=== PATIENT | female | born 1955 | race Caucasian/White ===

== ENCOUNTER 2016-07-17 21:58 | Emergency (ER) | payer OTHER ==
--- NOTE | 2016-07-17 23:06 | DIAGNOSTIC IMAGING REPORT ---
PROCEDURE: XR WRIST MIN 3 VIEWS - LEFT INDICATION: TRAUMA/INJURY TECHNIQUE: Four views. COMPARISON: None. FINDINGS: Osseous structures and joint spaces are normal. If an occult scaphoid fracture is suspected clinically, follow-up examination in 10-14 days may be of assistance. IMPRESSION: 1. Normal left wrist.
--- NOTE | 2016-07-17 23:40 | ED NURSING NOTES ---
Clinical Report - Nurses [facility] [address] [place] [address] 07/17/2016 22:00 Patient: LAINA LOPEZ TRIAGE Triage time 22:Jul 17 2016. Acuity: LEVEL 3. Chief Complaint: INJURY TO LEFT HAND and INJURY TO LEFT WRIST. SEPSIS SCREEN: Sepsis Screen: negative. Negative (no infection suspected/documented). MARZENA COMA SCORE: [place] Coma Scale: 15- eyes open spontaneously (4); best verbal response- oriented x 4 (5); best motor response- obeys commands (6). --22:10 Amparo Rodriguez 22:04 07/17/16. BP: 139/64. HR: 84. RR: 18. O2 saturation: 98% on room air. Temp: 97.8 F (oral). Pain level now: 12/26. --22:10 Amparo Rodriguez. Weight: 124.7 kg stated. Height/Length: 68 inches Per Patient. BMI: 41.8. --22:05 Amparo Rodriguez. Medications Atenolol Oral. --22:05 Amparo Rodriguez Synthroid Oral. --22:05 Amparo Rodriguez Requip XL Oral. --22:05 Amparo Rodriguez Flonase Nasal. --22:05 Amparo Rodriguez Lisinopril Oral. --22:05 Amparo Rodriguez. Medication/allergy information source: the patient. --22:10 Amparo Rodriguez. Allergies No Known Drug Allergy. --22:06 Amparo Rodriguez. History Arrived by private vehicle. Historian: patient. Accompanied by family. Primary physician (jennifer quevedo). This occurred just prior to arrival. Occurred at home. Mechanism of injury: fell while walking; tripped. ( Patient reports she was going down her steps when she tripped and fell. She caught herself with her left hand. She reports wrist and hand pain. She reports that she hit her left thigh as well.). 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 PAST MEDICAL HX: Tetanus status: up-to-date. Immunizations: up-to-date. The patient has had a hysterectomy. SOCIAL HX: Former smoker, end date 1996. No alcohol use or drug use. No infectious disease exposure. ABUSE ASSESSMENT: No report of abuse. FALL RISK ASSESSMENT: Fall risk assessment completed. No fall risk identified. NUTRITIONAL RISK ASSESSMENT: The nutritional risk assessment revealed no deficiencies. FUNCTIONAL ASSESSMENT: Functional assessment: no impairments noted. LEARNING NEEDS ASSESSMENT: The learning needs assessment revealed no barriers. SKIN INTEGRITY ASSESSMENT: Skin integrity risk assessment completed. No skin integrity risk identified. --22:10 Amparo Rodriguez. PROBLEMS: Thyroid Disease. Hypertension. --22:06 Amparo Rodriguez. ADDITIONAL SURGERIES: Hysterectomy. Thyroid Surgery. Tonsillectomy. --22:06 Amparo Rodriguez. Interventions ID band on patient. To treatment room. --22:10 Amparo Rodriguez. PHYSICAL ASSESSMENT 22:10 07/17/16. Ambulatory to room. GENERAL / NEURO / PSYCH: Oriented X 4. Alert. Appears in no acute distress. EXTREMITIES: Capillary refill is less than 2 seconds in the extremities. Extremity pulses are within normal limits. Neuro-vascular status intact to the extremity. Left wrist: tenderness. Left hand: tenderness. SKIN: Skin is warm and dry. --22:10 Amparo Rodriguez. NURSING PROGRESS NOTES Cold pack applied. Extremity elevated. Reassurance given to the patient. Two patient identifiers checked. Call light placed in reach. Side rails up x 1. Bed placed in lowest position. Brakes of bed on. Patient ready for evaluation- chart flagged and ED physician notified. --22:11 Amparo Rodriguez The patient reports no complaints and she is calm and resting quietly. --23:14 Amparo Rodriguez 3 inch saumya bandage applied to left wrist and left hand by nurse; distal pulses intact, sensation intact and motor function within normal limits. --23:45 Amparo Rodriguez. DISPOSITION / DISCHARGE 23:45 07/17/16. Condition at departure: stable. No learning barriers present. Discharge instructions provided and reviewed with the patient. Reviewed medication(s) side effects, precautions, dosing and course information. Prescription(s) given to the patient. Patient verbalized understanding. Written instructions provided in Upper Sorbian. ( Ice and elevate, Follow up with PCP in one week.). The patient was discharged by the nurse practitioner. She was discharged home and accompanied by family. She left the Emergency Department ambulatory and via private vehicle. Family member driving. --00:11 Amparo Rodriguez 00:09 07/18/16. BP: 158/95. HR: 87. RR: 20. O2 saturation: 96% on room air. Temp: 98.1 F (oral). Pain level now: 10/26. --00:11 Amparo Rodriguez. Locked/Released at 07/18/2016 0:11 by Amparo Rodriguez,
--- NOTE | 2016-07-17 23:40 | ED ORDER SUMMARY ---
..... Patient: LAINA LOPEZ OrderSheet [facility] VisitID: [id number] [address] [place] [address] 60y, F Registration Date/Time: 07/17/2016 ORDER SHEET Weight: 124.7 kg (stated) Allergies: No Known Drug Allergy GENERAL ORDERS: Wrist 3 or 4V Left Urgent (22:31 07/17/2016 HBivens A.R.N.P.) (22:36 RFay) Grey Wrap (23:37 07/17/2016 HBivens A.R.N.P.) (Ack 23:38 HSoule) (23:44 HSoule) MEDICATION ORDERS: IV FLUIDS: ORDER SHEET NOTES: [Electronically signed by Amparo Rodriguez (00:11 07/18/2016)] [Electronically signed by Gabriella Gilmore A.R.N.P. (12:57 07/19/2016)] [Electronically locked/signed by Amparo Rodriguez (00:11 07/18/2016)]
--- NOTE | 2016-07-17 23:40 | ED ORDER SUMMARY ---
..... Patient: LAINA LOPEZ OrderSheet [facility] VisitID: [id number] [address] [place] [address] 60y, F Registration Date/Time: 07/17/2016 ORDER SHEET Weight: 124.7 kg (stated) Allergies: No Known Drug Allergy GENERAL ORDERS: Wrist 3 or 4V Left Urgent (22:31 07/17/2016 HBivens A.R.N.P.) (22:36 RFay) Grey Wrap (23:37 07/17/2016 HBivens A.R.N.P.) (Ack 23:38 HSoule) (23:44 HSoule) MEDICATION ORDERS: IV FLUIDS: ORDER SHEET NOTES: [Electronically signed by Amparo Rodriguez (00:11 07/18/2016)] [Electronically signed by Gabriella Gilmore A.R.N.P. (12:57 07/19/2016)] [Electronically locked/signed by Amparo Rodriguez (00:11 07/18/2016)]
--- NOTE | 2016-07-17 23:40 | ED CLINICAL REPORT ---
Clinical Report - Physicians/Mid Levels [facility] [address] [place] [address] 07/17/2016 22:00 Patient: LAINA LOPEZ Time Seen: 2220; initial patient contact, initial documentation, patient care assumed. Arrived- By private vehicle. Historian- patient. HISTORY OF PRESENT ILLNESS Chief Complaint: FALL. Location of injuries- left wrist. The injury occurred just prior to arrival. Fell down a few stairs while walking and landed on a hard surface; tripped (missed a step). Occurred at home. The patient complains of moderate pain. No blow to the head, neck pain, loss of consciousness or seizure. Not dazed. REVIEW OF SYSTEMS No numbness, chest pain, difficulty breathing, abdominal pain or laceration. She has no pain on weight bearing. All systems otherwise negative, except as recorded above. PAST HISTORY See nurses notes. PROBLEMS: Thyroid Disease. Hypertension. --22:06 Amparo Rodriguez. ADDITIONAL SURGERIES: Hysterectomy. Thyroid Surgery. Tonsillectomy. --22:06 Amparo Rodriguez. SOCIAL HISTORY Former smoker. No alcohol use or drug use. No recent travel. Is a local resident. FAMILY HISTORY No significant family medical history. ADDITIONAL NOTES The nursing notes have been reviewed with agreement regarding the chief complaint, HPI, ROS, PMH and patient medications and allergies. PHYSICAL EXAM Vital Signs: 07/17/2016 22:04 BP: 139/64. HR: 84. RR: 18. O2 saturation: 98%. Temp: 97.8 F. Pain level now: 7/10. Have been reviewed as normal and appear to be correct. Appearance: Alert. Oriented X3. No acute distress. Head: Head non-tender. No swelling of head. Eyes: Pupils equal, round and reactive to light. EOM intact. ENT: No dental injury. Pharynx normal. Neck: Painless ROM. Non-tender. CVS: Heart sounds normal. Pulses normal. Respiratory: Breath sounds normal. Chest nontender. Abdomen: No visible injury. Soft and nontender. Moderately obese. Back: No tenderness. ROM normal. Skin: Skin intact. Skin warm and dry. Normal skin color. Normal skin turgor. Extremities: Abnormal inspection. Extremities not atraumatic. Left wrist: mild tenderness and swelling located in the area of the radial styloid and ulnar styloid and dorsal aspect of the wrist. Limited ROM (diminished flexion and extension, ulnar deviation and radial deviation). Neurovascular intact distally. No erythema, laceration, abrasion, ecchymosis or puncture wound. No foreign body or deformity. No joint effusion. Pelvis stable. No lower extremity edema. Neuro: Oriented X 3. No motor deficit. No sensory deficit. LABS, X-RAYS, AND EKG X-Rays: Left wrist negative. Lt Wrist X-ray: (IMPRESSION: 1. Normal left wrist. Electronically Final signed by:Callum Weber MD 07/17/2016 11:04:41 PM). The X-rays were interpreted by the radiologist and contemporaneously by me. PROGRESS AND PROCEDURES Course of Care: pt declined offer here for pain meds. Patient counseled in person regarding the patient's stable condition, test results and diagnosis. 23:22. Differential Diagnosis: Other possible considerations: fall, fx, sprain, lac, contusions. Above considerations are based on history, physical exam and X-Ray data. Differential diagnosis was discussed with patient. Disposition: Discharged home in good and improved condition (23:40). Condition: good and stable. CLINICAL IMPRESSION Sprain of the left radiocarpal joint. Fall on same level by tripping. INSTRUCTIONS Apply ice for 20 minutes four times a day for two days. Wear elastic wrap (Grey wrap) as directed for one weeks until better. Elevate affected areas above chest level for two days until better. Warnings: GENERAL WARNINGS: Return or contact your physician immediately if your condition worsens or changes unexpectedly, if not improving as expected, or if other problems arise. SPECIFICALLY, return if you develop numbness or incontinence of feces (loss of bowel control) or urine (loss of bladder control). chest pain, abdominal pain, trouble breathing. Prescription Medications: [place] 5 mg / 325 mg tablets: take 1 orally every 6 hours as needed for pain. Dispense five (5). No refill. Motrin 800 mg tablets: take 1 tablet orally every 8 hours as needed for pain. Dispense thirty (30). No refills. Substitution is permissible. Follow-up: Follow up with your doctor in about one week as needed. Call for an appointment. Summary of care provided to patient. Understanding of the discharge instructions verbalized by patient. (Electronically signed by Gabriella Gilmore A.R.N.P. 07/19/2016 12:57)
--- NOTE | 2016-07-17 23:40 | ED NURSING NOTES ---
Clinical Report - Nurses [facility] [address] [place] [address] 07/17/2016 22:00 Patient: LAINA LOPEZ TRIAGE Triage time 22:Jul 17 2016. Acuity: LEVEL 3. Chief Complaint: INJURY TO LEFT HAND and INJURY TO LEFT WRIST. SEPSIS SCREEN: Sepsis Screen: negative. Negative (no infection suspected/documented). MARZENA COMA SCORE: [place] Coma Scale: 15- eyes open spontaneously (4); best verbal response- oriented x 4 (5); best motor response- obeys commands (6). --22:10 Amparo Rodriguez 22:04 07/17/16. BP: 139/64. HR: 84. RR: 18. O2 saturation: 98% on room air. Temp: 97.8 F (oral). Pain level now: 12/26. --22:10 Amparo Rodriguez. Weight: 124.7 kg stated. Height/Length: 68 inches Per Patient. BMI: 41.8. --22:05 Amparo Rodriguez. Medications Atenolol Oral. --22:05 Amparo Rodriguez Synthroid Oral. --22:05 Amparo Rodriguez Requip XL Oral. --22:05 Amparo Rodriguez Flonase Nasal. --22:05 Amparo Rodriguez Lisinopril Oral. --22:05 Amparo Rodriguez. Medication/allergy information source: the patient. --22:10 Amparo Rodriguez. Allergies No Known Drug Allergy. --22:06 Amparo Rodriguez. History Arrived by private vehicle. Historian: patient. Accompanied by family. Primary physician (jennifer quevedo). This occurred just prior to arrival. Occurred at home. Mechanism of injury: fell while walking; tripped. ( Patient reports she was going down her steps when she tripped and fell. She caught herself with her left hand. She reports wrist and hand pain. She reports that she hit her left thigh as well.). 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 PAST MEDICAL HX: Tetanus status: up-to-date. Immunizations: up-to-date. The patient has had a hysterectomy. SOCIAL HX: Former smoker, end date 1996. No alcohol use or drug use. No infectious disease exposure. ABUSE ASSESSMENT: No report of abuse. FALL RISK ASSESSMENT: Fall risk assessment completed. No fall risk identified. NUTRITIONAL RISK ASSESSMENT: The nutritional risk assessment revealed no deficiencies. FUNCTIONAL ASSESSMENT: Functional assessment: no impairments noted. LEARNING NEEDS ASSESSMENT: The learning needs assessment revealed no barriers. SKIN INTEGRITY ASSESSMENT: Skin integrity risk assessment completed. No skin integrity risk identified. --22:10 Amparo Rodriguez. PROBLEMS: Thyroid Disease. Hypertension. --22:06 Amparo Rodriguez. ADDITIONAL SURGERIES: Hysterectomy. Thyroid Surgery. Tonsillectomy. --22:06 Amparo Rodriguez. Interventions ID band on patient. To treatment room. --22:10 Amparo Rodriguez. PHYSICAL ASSESSMENT 22:10 07/17/16. Ambulatory to room. GENERAL / NEURO / PSYCH: Oriented X 4. Alert. Appears in no acute distress. EXTREMITIES: Capillary refill is less than 2 seconds in the extremities. Extremity pulses are within normal limits. Neuro-vascular status intact to the extremity. Left wrist: tenderness. Left hand: tenderness. SKIN: Skin is warm and dry. --22:10 Amparo Rodriguez. NURSING PROGRESS NOTES Cold pack applied. Extremity elevated. Reassurance given to the patient. Two patient identifiers checked. Call light placed in reach. Side rails up x 1. Bed placed in lowest position. Brakes of bed on. Patient ready for evaluation- chart flagged and ED physician notified. --22:11 Amparo Rodriguez The patient reports no complaints and she is calm and resting quietly. --23:14 Amparo Rodriguez 3 inch saumya bandage applied to left wrist and left hand by nurse; distal pulses intact, sensation intact and motor function within normal limits. --23:45 Amparo Rodriguez. DISPOSITION / DISCHARGE 23:45 07/17/16. Condition at departure: stable. No learning barriers present. Discharge instructions provided and reviewed with the patient. Reviewed medication(s) side effects, precautions, dosing and course information. Prescription(s) given to the patient. Patient verbalized understanding. Written instructions provided in Mongolian. ( Ice and elevate, Follow up with PCP in one week.). The patient was discharged by the nurse practitioner. She was discharged home and accompanied by family. She left the Emergency Department ambulatory and via private vehicle. Family member driving. --00:11 Amparo Rodriguez 00:09 07/18/16. BP: 158/95. HR: 87. RR: 20. O2 saturation: 96% on room air. Temp: 98.1 F (oral). Pain level now: 10/26. --00:11 Amparo Rodriguez. Locked/Released at 07/18/2016 0:11 by Amparo Rodriguez,
--- NOTE | 2016-07-19 12:58 | ED DISCHARGE INSTRUCTIONS ---
Patient: LAINA LOPEZ General Instructions [facility] VisitID: [id number] [place] [address] 60y, F Registration Date/Time: 07/17/2016 Sprain of the left radiocarpal joint. Fall on same level by tripping. INSTRUCTIONS Apply ice for 20 minutes four times a day for two days. Wear elastic wrap (Grey wrap) as directed for one weeks until better. Elevate affected areas above chest level for two days until better. Warnings: GENERAL WARNINGS: Return or contact your physician immediately if your condition worsens or changes unexpectedly, if not improving as expected, or if other problems arise. SPECIFICALLY, return if you develop numbness or incontinence of feces (loss of bowel control) or urine (loss of bladder control). chest pain, abdominal pain, trouble breathing. Prescription Medications: [place] 5 mg / 325 mg tablets: take 1 orally every 6 hours as needed for pain. Dispense five (5). No refill. Motrin 800 mg tablets: take 1 tablet orally every 8 hours as needed for pain. Dispense thirty (30). No refills. Substitution is permissible. Follow-up: Follow up with your doctor in about one week as needed. Call for an appointment. Summary of care provided to patient. Understanding of the discharge instructions verbalized by patient. ADDITIONAL INFORMATION Mechanical Fall You have had a fall today. It appears that the cause is mechanical. That means that you slipped, tripped or lost your balance. If your fall had been due to fainting or a seizure, further tests would be required. Home Care: Rest today and resume your normal activities when you are feeling back to normal. If you were injured during the fall, follow the advice from your doctor regarding care of your injury. You may use acetaminophen (Tylenol) or ibuprofen (Motrin, Advil) to control pain, unless another pain medicine was prescribed. [NOTE: If you have chronic liver or kidney disease or ever had a stomach ulcer or GI bleeding, talk with your doctor before using these medicines.] Fall Prevention: Was there anything that caused your fall that can be fixed, removed, or replaced? Make your home safe by keeping walkways clear of objects you may trip over. Use non-slip pads under rugs. Do not walk in poorly lit areas. Do not stand on chairs or wobbly ladders. Use caution when reaching overhead or looking upward. This position can cause a loss of balance. Be sure your shoes fit properly, have non-slip bottoms and are in good condition. Be cautious when going up and down curbs, and walking on uneven sidewalks. If your balance is poor, consider using a cane or walker. Stay as active as you can. Balance, flexibility, strength, and endurance all come from exercise. They all play a role in preventing falls. Follow Up with your doctor or as advised by our staff. Get Prompt Medical Attention if any of the following occur: Repeated mechanical falls, or unexplained falls Dizziness, fainting or seizure Severe headache Chest pain or shortness of breath Palpitations (very rapid or very slow or irregular heartbeat) Blood in vomit, stools (black or red color) Weakness of an arm or leg or one side of the face Difficulty with speech or vision Sprain, Wrist A sprain is an injury to the ligaments or capsule that holds a joint together. There are no broken bones. Most sprains take about three to six weeks to heal. If the ligament is completely torn (severe sprain), it can take months to recover. Most wrist sprains are treated with a splint, wrist brace or elastic wrap for support. Severe sprains may require surgery. Home care The following guidelines will help you care for your injury at home: 1) Keep your arm elevated to reduce pain and swelling. This is very important during the first 48 hours. 2) Apply an ice pack (ice cubes in a plastic bag, wrapped in a towel) over the injured area for 20 minutes every 12 hours the first day. Continue with ice packs 34 times a day for the next two days, then as needed for the relief of pain and swelling. 3) You may use acetaminophen or ibuprofen to control pain, unless another pain medicine was prescribed.If you have chronic liver or kidney disease or ever had a stomach ulcer or GI bleeding, talk with your doctor before using these medicines. 4) If you were given a splint or brace, wear it for the time advised by your doctor. Follow-up care Follow up with your doctor as advised. Any X-rays you had today dont show any broken bones, breaks, or fractures. Sometimes fractures dont show up on the first X-ray. Bruises and sprains can sometimes hurt as much as a fracture. These injuries can take time to heal completely. If your symptoms dont improve or they get worse, talk with your doctor. You may need a repeat X-ray. When to seek medical care Get prompt medical attention if any of the following occur: Pain or swelling increases Fingers or hand becomes cold, blue, numb, or tingly Grey Wrap An "Grey Bandage" refers to any elastic bandage wrap (2-6" wide). This is used to apply support and compression to an arm or leg. It will help prevent or reduce swelling also. When applying the bandage, it should not be stretched too tightly. A tight Grey Wrap will reduce circulation and cause tingling or numbness in the hand or foot. It may increase the pain under the bandage. If you get these symptoms, remove the wrap and rest the limb. Symptoms should go away within 1-2 hours. Once symptoms go away, reapply the bandage with less stretch. If symptoms do not go away after 1-2 hours with the bandage off, call your doctor or return to this facility promptly. Hydrocodone Bitartrate, Acetaminophen Oral tablet What is this medicine? ACETAMINOPHEN; HYDROCODONE (a set a MARIA DOLORES rosa isela fen; radha droe KOE done) is a pain reliever. It is used to treat mild to moderate pain. How should I use this medicine? Take this medicine by mouth. Swallow it with a full glass of water. Follow the directions on the prescription label. If the medicine upsets your stomach, take the medicine with food or milk. Do not take more than you are told to take. Talk to your health sciences department chair regarding the use of this medicine in children. This medicine is not approved for use in children. What side effects may I notice from receiving this medicine? Side effects that you should report to your doctor or health manager critical care unit as soon as possible: allergic reactions like skin rash, itching or hives, swelling of the face, lips, or tongue breathing problems confusion feeling faint or lightheaded, falls stomach pain yellowing of the eyes or skin Side effects that usually do not require medical attention (report to your doctor or health manager critical care unit if they continue or are bothersome): nausea, vomiting stomach upset What may interact with this medicine? alcohol antihistamines isoniazid medicines for depression, anxiety, or psychotic disturbances medicines for sleep muscle relaxants naltrexone narcotic medicines (opiates) for pain phenobarbital ritonavir tramadol What if I miss a dose? If you miss a dose, take it as soon as you can. If it is almost time for your next dose, take only that dose. Do not take double or extra doses. Where should I keep my medicine? Keep out of the reach of children. This medicine can be abused. Keep your medicine in a safe place to protect it from theft. Do not share this medicine with anyone. Selling or giving away this medicine is dangerous and against the law. Store at room temperature between 15 and 30 degrees C (59 and 86 degrees F). Protect from light. Keep container tightly closed. Throw away any unused medicine after the expiration date. Discard unused medicine and used packaging carefully. Pets and children can be harmed if they find used or lost packages. What should I tell my health care provider before I take this medicine? They need to know if you have any of these conditions: brain tumor Crohn's disease, inflammatory bowel disease, or ulcerative colitis drink more than 3 alcohol-containing drinks per day drug abuse or addiction head injury heart or circulation problems kidney disease or problems going to the bathroom liver disease lung disease, asthma, or breathing problems an unusual or allergic reaction to acetaminophen, hydrocodone, other opioid analgesics, other medicines, foods, dyes, or preservatives or trying to get breast-feeding What should I watch for while using this medicine? Tell your doctor or health manager critical care unit if your pain does not go away, if it gets worse, or if you have new or a different type of pain. You may develop tolerance to the medicine. Tolerance means that you will need a higher dose of the medicine for pain relief. Tolerance is normal and is expected if you take the medicine for a long time. Do not suddenly stop taking your medicine because you may develop a severe reaction. Your body becomes used to the medicine. This does NOT mean you are addicted. Addiction is a behavior related to getting and using a drug for a non-medical reason. If you have pain, you have a medical reason to take pain medicine. Your doctor will tell you how much medicine to take. If your doctor wants you to stop the medicine, the dose will be slowly lowered over time to avoid any side effects. You may get drowsy or dizzy when you first start taking the medicine or change doses. Do not drive, use machinery, or do anything that may be dangerous until you know how the medicine affects you. Stand or sit up slowly. There are different types of narcotic medicines (opiates) for pain. If you take more than one type at the same time, you may have more side effects. Give your health care provider a list of all medicines you use. Your doctor will tell you how much medicine to take. Do not take more medicine than directed. Call emergency for help if you have problems breathing. The medicine will cause constipation. Try to have a bowel movement at least every 2 to 3 days. If you do not have a bowel movement for 3 days, call your doctor or health manager critical care unit. Too much acetaminophen can be very dangerous. Do not take Tylenol (acetaminophen) or medicines that contain acetaminophen with this medicine. Many non-prescription medicines contain acetaminophen. Always read the labels carefully. Ibuprofen Oral tablet What is this medicine? IBUPROFEN (eye BYOO proe fen) is a non-steroidal anti-inflammatory drug (NSAID). It is used for dental pain, fever, headaches or migraines, osteoarthritis, rheumatoid arthritis, or painful monthly periods. It can also relieve minor aches and pains caused by a cold, flu, or sore throat. How should I use this medicine? Take this medicine by mouth with a glass of water. Follow the directions on the prescription label. Take this medicine with food if your stomach gets upset. Try to not lie down for at least 10 minutes after you take the medicine. Take your medicine at regular intervals. Do not take your medicine more often than directed. A special MedGuide will be given to you by the pharmacist with each prescription and refill. Be sure to read this information carefully each time. Talk to your health sciences department chair regarding the use of this medicine in children. Special care may be needed. What side effects may I notice from receiving this medicine? Side effects that you should report to your doctor or health manager critical care unit as soon as possible: allergic reactions like skin rash, itching or hives, swelling of the face, lips, or tongue black or bloody stools, blood in the urine or in vomit breathing problems changes in vision chest pain general ill feeling or flu-like symptoms nausea or vomiting redness, blistering, peeling or loosening of the skin, including inside the mouth slurred speech or weakness on one side of the body stomach pain unexplained weight gain or swelling unusually weak or tired yellowing of eyes or skin Side effects that usually do not require medical attention (report to your doctor or health manager critical care unit if they continue or are bothersome): constipation or diarrhea dizziness gas or heartburn stomach upset What may interact with this medicine? Do not take this medicine with any of the following medications: cidofovir ketorolac methotrexate pemetrexed This medicine may also interact with the following medications: alcohol aspirin diuretics lithium other drugs for inflammation like prednisone warfarin What if I miss a dose? If you miss a dose, take it as soon as you can. If it is almost time for your next dose, take only that dose. Do not take double or extra doses. Where should I keep my medicine? Keep out of the reach of children. Store at room temperature between 15 and 30 degrees C (59 and 86 degrees F). Keep container tightly closed. Throw away any unused medicine after the expiration date. What should I tell my health care provider before I take this medicine? They need to know if you have any of these conditions: asthma cigarette smoker drink more than 3 alcohol containing drinks a day heart disease or circulation problems such as heart failure or leg edema (fluid retention) high blood pressure kidney disease liver disease stomach bleeding or ulcers an unusual or allergic reaction to ibuprofen, aspirin, other NSAIDS, other medicines, foods, dyes, or preservatives or trying to get breast-feeding What should I watch for while using this medicine? Tell your doctor or healthcare professional if your symptoms do not start to get better or if they get worse. This medicine does not prevent heart attack or stroke. In fact, this medicine may increase the chance of a heart attack or stroke. The chance may increase with longer use of this medicine and in people who have heart disease. If you take aspirin to prevent heart attack or stroke, talk with your doctor or health manager critical care unit. Do not take other medicines that contain aspirin, ibuprofen, or naproxen with this medicine. Side effects such as stomach upset, nausea, or ulcers may be more likely to occur. Many medicines available without a prescription should not be taken with this medicine. This medicine can cause ulcers and bleeding in the stomach and intestines at any time during treatment. Ulcers and bleeding can happen without warning symptoms and can cause . To reduce your risk, do not smoke cigarettes or drink alcohol while you are taking this medicine. You may get drowsy or dizzy. Do not drive, use machinery, or do anything that needs mental alertness until you know how this medicine affects you. Do not stand or sit up quickly, especially if you are an older patient. This reduces the risk of dizzy or fainting spells. This medicine can cause you to bleed more easily. Try to avoid damage to your teeth and gums when you brush or floss your teeth. You have been given the following additional information: Fall, Mechanical Wrist Sprain Grey Wrap Hydrocodone Bitartrate, Acetaminophen Oral tablet Ibuprofen Oral tablet (Electronically signed by Gabriella Gilmore A.R.N.P. 07/19/2016 12:57)
--- NOTE | 2016-07-19 12:58 | ED MAR SUMMARY ---
..... Medication Administration Record [facility] [address] [place], [place] [id number] Patient: LAINA LOPEZ Visit ID: [id number] 60y, F Weight: 124.7 kg Height/Length: 68 in BMI: 41.8 ALLERGIES: No Known Drug Allergy
--- NOTE | 2016-07-19 12:58 | ED MED RECONCILIATION SUMMARY ---
Patient: LAINA LOPEZ Medication Reconciliation Report [facility] VisitID: [id number] [place] [address] 60y, F Registration Date/Time: 07/17/2016 Weight: 124.7 kg Height/Length: 68 in. BMI: 41.8 ALLERGIES: No Known Drug Allergy The patient's Home Medications are listed below: THE FOLLOWING MEDICATIONS NEED TO BE RECONCILED: Atenolol Oral Flonase Nasal Lisinopril Oral Requip XL Oral Synthroid Oral The source(s) of the original Home Medication information: patient The following Medications were given to the patient in the Emergency Department: None. The following Medications were prescribed to the patient: [place] 5 mg / 325 mg tablets: take 1 orally every 6 hours as needed for pain. Dispense five (5). No refill. -- Gabriella Gilmore, A.R.N.P. Motrin 800 mg tablets: take 1 tablet orally every 8 hours as needed for pain. Dispense thirty (30). No refills. Substitution is permissible. -- Gabriella Gilmore, A.R.N.P.
--- NOTE | 2016-07-19 12:58 | ED MED RECONCILIATION SUMMARY ---
Patient: LAINA LOPEZ Medication Reconciliation Report [facility] VisitID: [id number] [place] [address] 60y, F Registration Date/Time: 07/17/2016 Weight: 124.7 kg Height/Length: 68 in. BMI: 41.8 ALLERGIES: No Known Drug Allergy The patient's Home Medications are listed below: THE FOLLOWING MEDICATIONS NEED TO BE RECONCILED: Atenolol Oral Flonase Nasal Lisinopril Oral Requip XL Oral Synthroid Oral The source(s) of the original Home Medication information: patient The following Medications were given to the patient in the Emergency Department: None. The following Medications were prescribed to the patient: [place] 5 mg / 325 mg tablets: take 1 orally every 6 hours as needed for pain. Dispense five (5). No refill. -- Gabriella Gilmore, A.R.N.P. Motrin 800 mg tablets: take 1 tablet orally every 8 hours as needed for pain. Dispense thirty (30). No refills. Substitution is permissible. -- Gabriella Gilmore, A.R.N.P.
--- NOTE | 2016-07-19 12:58 | ED MAR SUMMARY ---
..... Medication Administration Record [facility] [address] [place], [place] [id number] Patient: LAINA LOPEZ Visit ID: [id number] 60y, F Weight: 124.7 kg Height/Length: 68 in BMI: 41.8 ALLERGIES: No Known Drug Allergy
== END 2016-07-17 23:45 | disposition home or self-care (01) ==
LOC: ED SRH 21:58
DX: S63.522A Sprain of radiocarpal joint of left wrist, initial encounter (principal); W01.0XXA Fall on same level from slipping, tripping and stumbling without subsequent striking against object, initial encounter; Y93.01 Activity, walking, marching and hiking; Y92.009 Unspecified place in unspecified non-institutional (private) residence as the place of occurrence of the external cause; Y99.9 Unspecified external cause status; I10 Essential (primary) hypertension; E07.9 Disorder of thyroid, unspecified; Z87.891 Personal history of nicotine dependence